=== PATIENT | female | born 1960 | race Caucasian/White ===

== ENCOUNTER 2022-03-04 12:49 | Outpatient (CLI) | payer BC | END 2022-03-04 12:50 | disposition home or self-care (01) | LOC: BICMAMMO 12:49 | PROVIDERS: ATTEND Nurse Practitioner Family | DX: Z12.31 Encounter for screening mammogram for malignant neoplasm of breast (principal) | CPT/HCPCS: 77063; 77067 ==

== ENCOUNTER 2025-04-25 15:38 | Outpatient (CLI) | payer BC | END 2025-04-25 15:39 | disposition home or self-care (01) | LOC: BICMAMMO 15:38 | PROVIDERS: ATTEND Nurse Practitioner Family | DX: Z12.31 Encounter for screening mammogram for malignant neoplasm of breast (principal); Z80.3 Family history of malignant neoplasm of breast | CPT/HCPCS: 77063; 77067 ==